=== PATIENT | female | born 1995 | race Caucasian/White ===

== ENCOUNTER 2017-03-12 16:37 | Observation (INO) | payer MEDICAID, OTHER ==
[2017-03-12] MEDS ORDERED: ALBUTEROL SULFATE/IPRATROPIUM 3 ML NEBU IH ONE ×2 (17:08→17:10)
[2017-03-12] MEDS ORDERED: NORMAL SALINE 1,000 ML IV ONE (17:19)
[2017-03-12] MEDS ORDERED: METHYLPREDNISOLONE SOD SUCC/PF 40 MG/ML VIAL IV ONE (17:20)
[2017-03-12] MEDS ORDERED: METHYLPREDNISOLONE SOD SUCC/PF 40 MG/ML VIAL ONE (17:21)
[2017-03-12 17:22] LABS: Hemoglobin 12.5 gm/dL (12.5-16.0); Mean Cell Volume 85.1 fl (78-100); Mean Corpuscular Hemoglobin 29.6 pg (27-31); Mean Corpuscular Hgb Conc 34.7 g/dl (32-36); Mean Platelet Volume 9.6 fl (6.0-9.5); Platelet Count 266 K/mm3 (150-450); Red Blood Count 4.23 M/mm3 (4.2-5.4); Red Cell Distribution Width 13.4 % (11.5-14.0); White Blood Count 15.4 K/mm3 (4.0-10.5)
[2017-03-12 17:24] LABS: Total Cells Counted 100
[2017-03-12 17:34] LABS: Anion Gap 13.9 mmol/L (6.8-13.8); BUN/Creatinine Ratio 10.4 (9.0-21.6); Bilirubin, Total 0.7 mg/dL (0.0-1.1); Ca. Corrected For Albumin 9.7 mg/dL (8.4-10.2); Calcium * 9.2 mg/dL (7.9-10.9); Carbon Dioxide 28.2 mmol/L (24-32.6); Potassium 3.1 mmol/L (3.4-4.6)
[2017-03-12 17:59] LABS: Lymphocyte 20 % (20-51); Monocyte 9 % (0-9); Neutrophil 71 % (42-75); Neutrophil # 10.9 K/mm3 (1.3-6.0)
[2017-03-12 18:03] LABS: Dohle Bodies 2+; Platelet Estimate Normal (NORMAL); RBC Morphology Normal (NORMAL)
[2017-03-12] MEDS ORDERED: KETOROLAC TROMETHAMINE 30 MG/ML VIAL IV ONE (18:20)
[2017-03-12] MEDS ORDERED: KETOROLAC TROMETHAMINE 30 MG/ML VIAL ONE (18:20)
--- NOTE | 2017-03-12 18:38 | ERNOTE ---
Time Seen by Provider: 03/12/17 17:05 Stated Complaint: COUGH, RUNNY NOSE, BACK AND ABD PAIN Presenting Symptoms:: cough, other Source: patient - short of breath Exam Limitations: no limitations Immunizations: IMMUNIZATION HX Immunizations Up to Date Yes History of Influenza Vaccine No Hx Pneumococcal Vaccination No Allergies/Adverse Reactions: Allergies No Known Allergies Allergy (Unverified 03/12/17 17:01) Home Medications: HOME MEDICATIONS Cephalexin 500 mg PO TID 03/12/17 [Last Taken Unknown] Triamcinolone Acetonide 15 gm TP 03/12/17 [Last Taken Unknown] - History of Present Ilness Narrative: Patient presents with progressive shortness of breath and cough. Patient states that there appears to be wheezing present as well and she is in the presence of her friend who agrees. Timing: getting worse Severity: severe Frequency/Possible Cause: Reports: no prior episodes Modifying Factors - Improves: Reports: nothing Modifying Factors - Worsens: Reports: other - smoking Associated Symptoms: Reports: cough, shortness of breath, wheezing Review of Systems - Review of Systems Constitutional: Present: See HPI EYE: Present: no symptoms reported ENT: Present: no symptoms reported Respiratory: Present: See HPI, shortness of breath, cough, wheezing Cardiology: Present: no symptoms reported Gastrointestinal/Abdominal: Present: no symptoms reported Genitourinary: Present: no symptoms reported Musculoskeletal: Present: no symptoms reported Skin: Present: no symptoms reported Neurological: Present: no symptoms reported Endocrine: Present: no symptoms reported Hematologic/Lymphatic: Present: no symptoms reported Psych: Present: no symptoms reported - Patient's Past Medical History Patient History - Medical: Anxiety, Depression Patient History - Cardiac/Respiratory: Other Patient History - Cancer: No Hx of Cancer Patient History - Surgical Procedures: T & A Patient History - Other: None LMP (females 10-50): 3 weeks - Social History Living Situations: home Abuse History: No History of abuse Psych History: Hx of Anxiety, Hx of Depression Smoking Status: Current every day smoker Have you smoked in the past 12 months: Yes Do you dip or chew tobacco: No Patient requests Smoking Cessation Consult: No Initiate information on Smoking Cessation: No Alcohol Use: none Drug Use: none - Immunizations Immunizations Up to Date: Yes Hx Pneumococcal Vaccination: No History of Influenza Vaccine: No Physical Exam - Physical Exam General Appearance: Present: wd/wn, alert, moderate distress Head Exam: Present: normal inspection Eye Exam: Normal inspection: bilateral, PERRL: bilateral Ears, Nose, Throat: Present: normal ENT inspection, H, normal pharynx Neck: Present: normal inspection, nontender Respiratory: Present: no accessory muscle use, chest nontender, respiratory distress, rales - in both bases right greater than left, wheezing Cardiovascular/Chest: Present: regular rate, rhythm, no murmur, normal peripheral pulses Gastrointestinal/Abdominal: Present: normal bowel sounds, nontender, nondistended, soft, no organomegaly Rectal Exam: Present: deferred Back Exam: Present: normal inspection, normal range of motion Extremity Exam: Present: normal inspection, non-tender, no edema, normal range of motion Neurological Exam: Present: alert, oriented, normal mood/affect Skin Exam: Present: normal color, warm/dry, skin rash Lymphatic Exam: Present: no adenopathy ED Progress - Results and Orders Patient's Lab Results:: I have reviewed the patient's lab results. - Vital Signs Patient's Vital Signs:: I have reviewed the patient's vital signs. Vital Signs: Vital Signs 03/12/17 03/12/17 03/12/17 16:53 16:55 17:14 Temperature 37.1 C Pulse Rate 114 H 120 H 123 H Respiratory 18 20 16 Rate Blood Pressure 121/78 118/74 124/80 O2 Sat by Pulse 90 88 L 92 Oximetry 03/12/17 17:52 Temperature Pulse Rate 89 Respiratory 16 Rate Blood Pressure 113/77 O2 Sat by Pulse 96 Oximetry - X-Ray X-Ray #1 X-Ray: chest Interpretation: Reviewed by me - Progress/Reassessment Chief Complaint: Upper Respiratory Symptoms Plan - Plan Plan: Patient was hypoxic at 87-88% when she reached emergency department. She was also in moderate to severe respiratory distress with wheezing, cough and Rales in both bases. While I do not see any obvious pneumonia on the chest x-ray I suspect after she is hydrated he may very well see pneumonia in both bases. Patient was given a liter of fluid as well as slight Medrol and a DuoNeb breathing treatment here in the emergency department and only showed mild improvement. Patient will need to be admitted for aggressive pulmonary toilet, IV steroids and likely antibiotics. Departure - Departure Clinical Impression: Asthma attack, Bronchitis, Hypoxia Disposition: [facility] Condition: Fair
--- NOTE | 2017-03-12 20:23 | HP ---
<Anupama Zavaleta - Last Filed: 03/13/17 01:25> Chief Complaint - Chief Complaint Date of Service: 03/12/17 Time of Service: 20:23 Chief Complaint: "Coughing, Nasal Congestion,". Source of HPI- Pt; reliable, ER provider report. History of Present Illness: Ms. Celaya is a 21-yr-old [place] pt of Jade Cerrato, a family medicine physician in [place]. Her PMH is significant for Anxiety and Depression only. Pt states that 5 days ago, she developed nasal congestion and drainage. Then her symptoms progressed to coughing for the last 2 days.The cough is worse both during the day and night and is able to bring up thick white or yellow phlegm. She states that her rib cage was hurting due to excessive coughing and therefore chose to come to the ED today. She reports losing her voice on the 3- 4th day of her symptoms. She denies fevers and chills, & being SOB except when coughing. She also denies ever being diagnosed with restrictive airway disease such as Asthma. At the ED, she was found to have desaturations to 88% RA & required oxygen supplementation. She made mild improvement with wheezing and SOB at the ED following nebulizer treatments & IV corticosteroids, hence the need to be admitted under observation status for continued treatments. - Patient's Past Medical History Patient History - Medical: Anxiety, Depression Patient History - Cardiac/Respiratory: Other Patient History - Cancer: No Hx of Cancer Patient History - Surgical Procedures: T & A Patient History - Other: None LMP (females 10-50): 1 month LMP (Calendar): 02/18/17 - Family History Mother Family History - Medical: No pertinent hx Father Family History - Medical: Other - Multiple Sclerosis. - Social History Living Situations: home Abuse History: No History of abuse Psych History: Hx of Anxiety, Hx of Depression Smoking Status: Current every day smoker Have you smoked in the past 12 months: Yes Do you dip or chew tobacco: No Patient requests Smoking Cessation Consult: No Initiate information on Smoking Cessation: No Alcohol Use: none Drug Use: none - Immunizations Immunizations Up to Date: Yes Hx Pneumococcal Vaccination: No History of Influenza Vaccine: No Review Of Systems (GEN) - Review of Systems Generalized/Overall Review: Absent: Weakness, Chills, Fever, Malaise, Weight loss EENTM: Present: Eye Pain, Tearing, Nose Pain, Nose Congestion, Throat Pain. Absent: Blurred Vision, Double Vision Respiratory: Present: Cough, Shortness of Breath - with coughing only. Cardiac: Absent: Chest Pain, Edema, Palpitations, Syncope Abdominal: Absent: Nausea, Vomiting, Hematemesis, Abdominal Pain, Constipation, Diarrhea Genitourinary: Absent: Burning, Itching, Urgency Musculoskeletal: Present: Other - Rib cage pain. Absent: Joint Pain, Back Pain , Joint Swelling Neurological: Present: Headache, Anxiety, Depressed, Emotional Problems Skin: Absent: Dryness, Lesions, Lumps, Bruising Endocrine: Absent: Intolerance to Cold, Intolerance to Heat, Flushing, Increased Thirst Misc: All systems neg except as marked Immunizations: IMMUNIZATION HX Immunizations Up to Date Yes History of Influenza Vaccine No Hx Pneumococcal Vaccination No Allergies/Adverse Reactions: Allergies Allergy/AdvReac Type Severity Reaction Status Date / Time No Known Allergies Allergy Unverified 03/12/17 17:01 Home Medications: HOME MEDICATIONS Triamcinolone Acetonide 15 gm TP BID 03/12/17 [Last Taken 03/12/17] Albuterol Sulfate [Proair Hfa] 2 puff IH Q4H PRN #1 inhaler 03/13/17 [Last Taken Unknown] Ibuprofen [Motrin] 200 mg PO Q6H PRN tablet 03/13/17 [Last Taken Unknown] Levofloxacin [Levaquin] 500 mg PO DAILY #7 tab 03/13/17 [Last Taken Unknown] diphenhydrAMINE HCL [Benadryl] 25 mg PO HS PRN capsule 03/13/17 [Last Taken Unknown] guaiFENesin/DEXTROMETHORPHAN [Robitussin-Dm] 10 ml PO Q4H PRN btl 03/13/17 [ Last Taken Unknown] predniSONE [Prednisone] 3 tab PO BID #60 tab 03/13/17 [Last Taken Unknown] Exam - Exam Vital Signs: Vital Signs - Last Taken Temp 36.8 C 03/12/17 18:46 Pulse 115 H 03/12/17 18:46 Resp 20 03/12/17 18:46 BP 112/72 03/12/17 18:46 Pulse Ox 93 03/12/17 18:35 Constitutional: Present: Alert, Oriented x3, Cooperative, No distress ENT Exam: Present: normal ENT inspection, nasal drainage, muffled/hoarse voice. Absent: pharyngeal erythema Eye Exam: bilateral eye: normal inspection, PERRL Neck: Present: non-tender, full range of motion, supple Back Exam: Present: normal inspection, no CVA tenderness Breasts: Present: Exam deferred Respiratory: Present: decreased breath sounds, No rales, No wheezing Cardiovascular/Chest: Present: normal peripheral pulses, regular rate, rhythm, no chest tenderness, no murmur, tachycardia Abdomen: Present: Normal bowel sounds, soft, nontender /Rectal: Present: Exam deferred Extremity: Present: normal range of motion, non-tender, normal inspection Skin Exam: Present: warm/dry, no cyanosis Lymphatic: Present: no adenopathy Neurologic: Present: no motor/sensory deficits, alert, normal mood/affect, oriented x 3 Appearance: Present: appropriate appearance, appropriate insight Eye contact: Present: cooperative, good eye contact, normal speech Thoughts: Present: normal thought pattern, no apparent hallucination Diagnostic Studies: Laboratory Results WBC 15.4 K/mm3 (4.0-10.5) H 03/12/17 17:19 RBC 4.23 M/mm3 (4.2-5.4) 03/12/17 17:19 Hgb 12.5 gm/dL (12.5-16.0) 03/12/17 17:19 Hct 36.0 % (37.0-47.0) L 03/12/17 17:19 MCV 85.1 fl (78-100) 03/12/17 17:19 MCH 29.6 pg (27-31) 03/12/17 17:19 MCHC 34.7 g/dl (32-36) 03/12/17 17:19 RDW 13.4 % (11.5-14.0) 03/12/17 17:19 Plt Count 266 K/mm3 (150-450) 03/12/17 17:19 MPV 9.6 fl (6.0-9.5) H 03/12/17 17:19 Neutrophils % (Manual) 71 % (42-75) 03/12/17 17:19 Lymphocytes % (Manual) 20 % (20-51) 03/12/17 17:19 Monocytes % (Manual) 9 % (0-9) 03/12/17 17:19 Neutrophils # (Manual) 10.9 K/mm3 (1.3-6.0) H 03/12/17 17:19 Lymphocytes # (Manual) 3.1 k/mm3 (1.5-3.5) 03/12/17 17:19 Monocytes # (Manual) 1.4 k/mm3 (0.0-1.0) H 03/12/17 17:19 Toxic Vacuolation Trace 03/12/17 17:19 Dohle Bodies 2+ 03/12/17 17:19 Platelet Estimate Normal (NORMAL) 03/12/17 17:19 RBC Morphology Normal (NORMAL) 03/12/17 17:19 Sodium 139 mmol/L (132-142) 03/12/17 17:19 Plasma Sodium 139 mmol/L (130-142) 03/12/17 17:19 Potassium 3.1 mmol/L (3.4-4.6) L 03/12/17 17:19 Chloride 100 mmol/L (97-106) 03/12/17 17:19 Carbon Dioxide 28.2 mmol/L (24-32.6) 03/12/17 17:19 Anion Gap 13.9 mmol/L (6.8-13.8) H 03/12/17 17:19 BUN 7 mg/dL (3-23) 03/12/17 17:19 Creatinine 0.67 mg/dL (0.4-1.4) 03/12/17 17:19 Est GFR (Non-Af Amer) 119 mL/min (60-130) 03/12/17 17:19 BUN/Creatinine Ratio 10.4 (9.0-21.6) 03/12/17 17:19 Random Glucose 98 mg/dL (70-110) 03/12/17 17:19 Lactic Acid, Venous 1.8 mmol/L (0.4-1.9) 03/12/17 17:44 Calcium 9.2 mg/dL (7.9-10.9) 03/12/17 17:19 Calcium Adj for Albumin 9.7 mg/dL (8.4-10.2) 03/12/17 17:19 Total Bilirubin 0.7 mg/dL (0.0-1.1) 03/12/17 17:19 AST 13 U/L (0-48) 03/12/17 17:19 ALT 17 U/L (19-67) L 03/12/17 17:19 Alkaline Phosphatase 113 U/L (50-170) 03/12/17 17:19 Total Protein 8.0 gm/dL (6.2-8.2) 03/12/17 17:19 Albumin 3.0 gm/dl (3.4-5.0) L 03/12/17 17:19 Serum HCG, Qual Negative (NEGATIVE) 03/12/17 17:19 Assessment/Plan - Assessment/Plan (1) Acute bronchitis Assessment: Pt reports symptoms of URI involving nasal congestion and nasal drainage x 5 days, which was later progressed to deep productive coughing and loss of voice of the 3rd and 4 th day and sore throat. On physical examination, she has no exp /insp. wheezing and in no obvious sign of distress. She has continuous coughing and a hoarse voice. The CXR was normal, she has no fevers, laboured breathing or rales to cause any suspicion of pneumonia. She denies history of Asthma and do not suspect that this is an exacerbation of Asthma/asthma attack. WBC is elevated at 15,400 but is non- specific as there is no left shift. Her symptom presentation fits Bronchitis and requires supportive treatments with: IVF/Oral fluids,Ibuprofen for pain and bronchodilators with Xopenex and Cough Suppressants. Antibiotics are not indicated for an otherwise healthy patient with acute bronchitis. Will encourage her to get a humidifier to help loosen mucus and improve breath and also provide smoking cessation teaching. Problem: Acute (2) Hypokalemia Assessment: Give oral replacement, BMP in am. Problem: Acute (3) Anxiety Problem: Chronic (4) Depression Problem: Chronic <Matheus Chacon - Last Filed: 03/13/17 22:24> History of Present Illness: I personally examined this patient, and believe she has acute asthma. I directed our nurse practitioner hospitalist in all her care for this patient and agree with her plan. Immunizations: IMMUNIZATION HX Immunizations Up to Date Yes History of Influenza Vaccine No Hx Pneumococcal Vaccination No Exam - Exam Vital Signs: Vital Signs - Last Taken Temp 36.7 C 03/13/17 09:54 Pulse 89 03/13/17 09:54 Resp 18 03/13/17 09:54 BP 115/77 03/13/17 09:54 Pulse Ox 93 03/13/17 09:54 Diagnostic Studies: Abnormal Lab Results 03/13/17 03/13/17 Range/Units 06:13 06:13 WBC 10.6 H D (4.0-10.5) K/mm3 RBC 3.87 L (4.2-5.4) M/mm3 Hgb 11.6 L (12.5-16.0) gm/dL Hct 33.6 L (37.0-47.0) % MPV 9.7 H (6.0-9.5) fl Neutrophils % (Manual) 81 H (42-75) % Band Neuts % (Manual) 3 H (0-2.0) % Lymphocytes % (Manual) 10 L (20-51) % Neutrophils # (Manual) 8.6 H (1.3-6.0) K/mm3 Lymphocytes # (Manual) 1.1 L (1.5-3.5) k/mm3 Sodium 144 H (132-142) mmol/L Plasma Sodium 145 H (130-142) mmol/L Chloride 108 H (97-106) mmol/L Est GFR (Non-Af Amer) 133 H (60-130) mL/min Random Glucose 140 H D (70-110) mg/dL Laboratory Results WBC 10.6 K/mm3 (4.0-10.5) H D 03/13/17 06:13 RBC 3.87 M/mm3 (4.2-5.4) L 03/13/17 06:13 Hgb 11.6 gm/dL (12.5-16.0) L 03/13/17 06:13 Hct 33.6 % (37.0-47.0) L 03/13/17 06:13 MCV 86.8 fl (78-100) 03/13/17 06:13 MCH 30.0 pg (27-31) 03/13/17 06:13 MCHC 34.5 g/dl (32-36) 03/13/17 06:13 RDW 13.4 % (11.5-14.0) 03/13/17 06:13 Plt Count 231 K/mm3 (150-450) 03/13/17 06:13 MPV 9.7 fl (6.0-9.5) H 03/13/17 06:13 Neutrophils % (Manual) 81 % (42-75) H 03/13/17 06:13 Band Neuts % (Manual) 3 % (0-2.0) H 03/13/17 06:13 Lymphocytes % (Manual) 10 % (20-51) L 03/13/17 06:13 Monocytes % (Manual) 5 % (0-9) 03/13/17 06:13 Immature Granulocytes 1 (0-1) 03/13/17 06:13 Neutrophils # (Manual) 8.6 K/mm3 (1.3-6.0) H 03/13/17 06:13 Lymphocytes # (Manual) 1.1 k/mm3 (1.5-3.5) L 03/13/17 06:13 Monocytes # (Manual) 0.5 k/mm3 (0.0-1.0) 03/13/17 06:13 Toxic Vacuolation Trace 03/12/17 17:19 Dohle Bodies 2+ 03/12/17 17:19 Platelet Estimate Normal (NORMAL) 03/13/17 06:13 RBC Morphology Normal (NORMAL) 03/13/17 06:13 Sodium 144 mmol/L (132-142) H 03/13/17 06:13 Plasma Sodium 145 mmol/L (130-142) H 03/13/17 06:13 Potassium 3.7 mmol/L (3.4-4.6) 03/13/17 06:13 Chloride 108 mmol/L (97-106) H 03/13/17 06:13 Carbon Dioxide 25.9 mmol/L (24-32.6) 03/13/17 06:13 Anion Gap 13.8 mmol/L (6.8-13.8) 03/13/17 06:13 BUN 7 mg/dL (3-23) 03/13/17 06:13 Creatinine 0.61 mg/dL (0.4-1.4) 03/13/17 06:13 Est GFR (Non-Af Amer) 133 mL/min (60-130) H 03/13/17 06:13 BUN/Creatinine Ratio 11.5 (9.0-21.6) 03/13/17 06:13 Random Glucose 140 mg/dL (70-110) H D 03/13/17 06:13 Lactic Acid, Venous 1.8 mmol/L (0.4-1.9) 03/12/17 17:44 Calcium 9.1 mg/dL (7.9-10.9) 03/13/17 06:13 Calcium Adj for Albumin 9.7 mg/dL (8.4-10.2) 03/12/17 17:19 Total Bilirubin 0.7 mg/dL (0.0-1.1) 03/12/17 17:19 AST 13 U/L (0-48) 03/12/17 17:19 ALT 17 U/L (19-67) L 03/12/17 17:19 Alkaline Phosphatase 113 U/L (50-170) 03/12/17 17:19 Total Protein 8.0 gm/dL (6.2-8.2) 03/12/17 17:19 Albumin 3.0 gm/dl (3.4-5.0) L 03/12/17 17:19 Serum HCG, Qual Negative (NEGATIVE) 03/12/17 17:19 Influenza Type A Ag Negative (NEGATIVE) 03/12/17 20:45 Influenza Type B Ag Negative (NEGATIVE) 03/12/17 20:45 Group A Strep Rapid Negative (NEGATIVE) 03/12/17 20:45 Assessment/Plan - Assessment/Plan (1) Asthma attack Problem: Acute
[2017-03-12] MEDS ORDERED: guaiFENesin/DEXTROMETHORPHAN 118 ML BTL PO PRN (20:25)
[2017-03-12] MEDS ORDERED: IBUPROFEN 200 MG TABLET PO PRN (20:26)
[2017-03-12] MEDS: LEVALBUTEROL HCL 0.63 MG/3 ML AMPUL IH SCH ×3 (21:50→23:03)
[2017-03-12] MEDS ORDERED: LEVALBUTEROL HCL 0.63 MG/3 ML AMPUL IH ONE (22:01)
[2017-03-12] MEDS: NORMAL SALINE 1,000 ML IV PRN (22:33)
[2017-03-12] MEDS ORDERED: POTASSIUM CHLORIDE 20 MEQ TABLET.SA PO ONE (22:48)
[2017-03-12] MEDS ORDERED: ALBUTEROL SULFATE 2.5 MG/0.5 ML VIAL.NEB IH SCH (23:00)
[2017-03-13] MEDS ORDERED: diphenhydrAMINE HCL 25 MG CAPSULE PO PRN
[2017-03-13] MEDS ORDERED: METHYLPREDNISOLONE SOD SUCC 60 MG in WATER FOR INJ.,BACTERIOSTATIC 0 ML IV SCH ×2
[2017-03-13 06:17] LABS: Hematocrit 33.6 % (37.0-47.0); Hemoglobin 11.6 gm/dL (12.5-16.0); Mean Cell Volume 86.8 fl (78-100); Mean Corpuscular Hgb Conc 34.5 g/dl (32-36); Mean Platelet Volume 9.7 fl (6.0-9.5); Platelet Count 231 K/mm3 (150-450); Red Blood Count 3.87 M/mm3 (4.2-5.4); Red Cell Distribution Width 13.4 % (11.5-14.0); White Blood Count 10.6 K/mm3 (4.0-10.5)
[2017-03-13 06:33] LABS: Total Cells Counted 100
[2017-03-13 06:34] LABS: Anion Gap 13.8 mmol/L (6.8-13.8); BUN/Creatinine Ratio 11.5 (9.0-21.6); Calcium * 9.1 mg/dL (7.9-10.9); Carbon Dioxide 25.9 mmol/L (24-32.6); Potassium 3.7 mmol/L (3.4-4.6)
[2017-03-13] MEDS: NORMAL SALINE 1,000 ML IV PRN (06:50)
[2017-03-13 06:54] LABS: Band 3 % (0-2.0); Immature Granulocyte 1 (0-1); Lymphocyte 10 % (20-51); Monocyte 5 % (0-9); Neutrophil 81 % (42-75); Neutrophil # 8.6 K/mm3 (1.3-6.0); Platelet Estimate Normal (NORMAL); RBC Morphology Normal (NORMAL)
[2017-03-13] MEDS: LEVALBUTEROL HCL 0.63 MG/3 ML AMPUL IH SCH (07:24)
[2017-03-13 07:57] VITALS: BP 115/77
--- NOTE | 2017-03-13 09:57 | DS ---
(1) Asthma attack Problem: Acute Description of Stay: Improved rapidly. Slight wheezing, but much more comfortable. Thinks she has recurrent bronchitis since 15 years old, not asthma. Started smoking this year. Procedures Performed: none Discharge Disposition: Home self care Disposition: Home self-care Condition: Good Discharge Diet: General/regular food Referrals: Jade Cerrato ARNP [Primary Care Provider] - Problem Oriented Discharge Instructions to Patient/Family: Asthma, Adult, Easy- to-Read, Tobacco Use Disorder Additional Patient Instructions (free text): Follow up with your health care provider in 2-3 days. Prescriptions (Any new or edited meds): Albuterol Sulfate [Proair Hfa] 2 puff IH Q4H PRN #1 inhaler PRN Reason: Wheezing Levofloxacin [Levaquin] 500 mg PO DAILY #7 tab predniSONE [Prednisone] 3 tab PO BID #60 tab Complete Home Medications List: Complete Home Medication List: Triamcinolone Acetonide 15 gm TP BID 03/12/17 Albuterol Sulfate [Proair Hfa] 2 puff IH Q4H PRN #1 inhaler 03/13/17 Ibuprofen [Motrin] 200 mg PO Q6H PRN tablet 03/13/17 Levofloxacin [Levaquin] 500 mg PO DAILY #7 tab 03/13/17 diphenhydrAMINE HCL [Benadryl] 25 mg PO HS PRN capsule 03/13/17 guaiFENesin/DEXTROMETHORPHAN [Robitussin-Dm] 10 ml PO Q4H PRN btl 03/13/17 predniSONE [Prednisone] 3 tab PO BID #60 tab 03/13/17
== END 2017-03-13 11:15 | disposition home or self-care (01) ==
LOC: ER 16:37 → MS 18:21
PROVIDERS: ADMIT Nurse Practitioner Critical Care Medicine; ATTEND Allergy & Immunology
DX: J45.901 Unspecified asthma with (acute) exacerbation (principal); F17.210 Nicotine dependence, cigarettes, uncomplicated; E87.6 Hypokalemia; F41.8 Other specified anxiety disorders
CPT/HCPCS: 36415; 71020; 80048; 80053; 83605; 84703; 85007; 85025; 87040; 87081; 87400; 87430; 94640; 96365; 96375; 99285; G0378